=== PATIENT | male | born 1945 | race Caucasian/White ===

== ENCOUNTER 2025-02-02 04:17 | Emergency (ER) | payer MEDICARE ==
[~2025-02-02] VITALS: Ht 170.2 cm; Wt 72.7 kg
[2025-02-02] MEDS: NS (Normal Saline) 0.9% 1,000 ML IV ONE (04:35)
[2025-02-02 05:15] LABS: VENOUS BASE EXCESS 4.2 (-2.0-2.0); VENOUS HCO3 31.1 MMOL/L (23.0-27.0); VENOUS O2 SATURATION 49.8 % (60.0-80.0); VENOUS PARTIAL PRESSURE CO2 55.2 mmHg (38.0-50.0); VENOUS PARTIAL PRESSURE O2 50.4 mmHg (30.0-50.0); VENOUS PH 7.368 UNITS (7.330-7.430); VENOUS STANDARD HCO3 26.9 MMOL/L; VENOUS TOTAL CO2 32.7 MMOL/L (24.0-28.0)
[2025-02-02 05:26] LABS: BASO % 0.4 % (0.0-1.0); EOS % 0.2 % (0.0-3.0); HEMOGLOBIN 14.2 g/dl (13.5-17.5); LYMPH # 0.6 10^3/uL (1.5-5.0); LYMPH % 11.7 % (24.0-44.0); MEAN CORPUSCULAR HEMOGLOBIN 30.6 pg (27.0-33.0); MEAN CORPUSCULAR HGB CONC 33.8 g/dl (32.0-36.5); MEAN CORPUSCULAR VOLUME 90.5 fl (80.0-96.0); MONO # 0.7 10^3/uL (0.0-0.8); MONO % 12.6 % (2.0-8.0); NEUTROPHILS # 3.9 10^3/uL (1.5-8.5); NEUTROPHILS % 74.9 % (36.0-66.0); PLATELET COUNT, AUTOMATED 183 10^3/uL (150-450); RED BLOOD COUNT 4.64 10^6/uL (4.30-6.10); WHITE BLOOD COUNT 5.2 10^3/uL (4.0-10.0)
[2025-02-02 05:39] LABS: KETONE, URINE AUTO RFX NEGATIVE (NEGATIVE); LEUKOCYTE ESTERASE UR AUTO RFX NEGATIVE (NEGATIVE); NITRITE, URINE AUTO RFX NEGATIVE (NEGATIVE); RBC, URINE AUTO RFX 1 /HPF (0-3); SQUAM EPITHELIAL CELL UR AURFX 0 /HPF (0-6); WBC, URINE AUTO RFX 0 /HPF (0-3)
[2025-02-02 05:42] LABS: LIPASE 171 U/L (12-53)
[2025-02-02 05:43] LABS: ACETONE/KETONE 0.24 MMOL/L (0.02-0.27)
[2025-02-02 05:44] LABS: ALBUMIN 3.5 G/DL (3.2-5.2); ALKALINE PHOSPHATASE 100 U/L (40-129); ALT/SGPT 52 U/L (7.0-40); AST/SGOT 34 U/L (<34); BILIRUBIN,DIRECT 0.4 MG/DL (<0.4); BLOOD UREA NITROGEN 21 MG/DL (9-23); CALCIUM LEVEL 8.6 MG/DL (8.3-10.6); CARBON DIOXIDE LEVEL 30 MMOL/L (20-31); CHLORIDE LEVEL 99 MMOL/L (98-107); CK-MB VALUE MASS < 1.0 NG/ML (<3.6); CPK CREATINE PHOSPHOKINASE 142 U/L (46-171); CREATININE FOR GFR 1.03 MG/DL (0.70-1.30); GLOMERULAR FILTRATION RATE > 60.0 (>35); GLUCOSE, FASTING 297 MG/DL (74-106); POTASSIUM SERUM 3.7 MMOL/L (3.5-5.1); SODIUM LEVEL 135 MMOL/L (136-145); TOTAL PROTEIN 6.6 G/DL (5.7-8.2)
[2025-02-02 05:47] LABS: HEMOGLOBIN A1c 12.6 % (4.0-6.0)
[2025-02-02 06:00] LABS: OSMOLALITY SERUM 300 MOSM/KG (280-301)
[2025-02-02] MEDS: OSELTAMIVIR PHOSPHATE 75 MG CAP PO ONE (06:39)
[2025-02-02 06:55] LABS: CK-MB VALUE MASS 1.5 NG/ML (<3.6)
[2025-02-02 07:04] LABS: MB/CK RELATIVE INDEX 1.12 (< OR =4)
[2025-02-02] MEDS ORDERED: ROSU20TA86 PO (07:42)
[2025-02-02] MEDS ORDERED: ELIQ5TAB PO (07:42)
[2025-02-02] MEDS ORDERED: AMLO2.5T3 PO (07:42)
[2025-02-02] MEDS ORDERED: METF10004 PO (07:42)
[2025-02-02] MEDS ORDERED: HYDR-3490 PO (07:42)
[2025-02-02] MEDS ORDERED: GABA-1490 PO (07:42)
[2025-02-02] MEDS ORDERED: GLIP10TA18 PO (07:42)
[2025-02-02] MEDS ORDERED: EZET10TA21 PO (07:42)
[2025-02-02] MEDS ORDERED: FLUT1BLS5 INH (07:42)
[2025-02-02] MEDS ORDERED: OSEL75CA PO (09:48)
[2025-02-02 09:50] VITALS: BP 142/78; TEMP 99.5; O2SAT 94
== END 2025-02-02 10:15 | disposition home or self-care (01) ==
LOC: EDBD 04:17 → M ED 04:17
DX: J09.X2 Influenza due to identified novel influenza A virus with other respiratory manifestations (principal); I45.2 Bifascicular block; I48.91 Unspecified atrial fibrillation; E11.9 Type 2 diabetes mellitus without complications; J44.9 Chronic obstructive pulmonary disease, unspecified; F10.10 Alcohol abuse, uncomplicated; Z79.01 Long term (current) use of anticoagulants; Z79.84 Long term (current) use of oral hypoglycemic drugs; Z79.899 Other long term (current) drug therapy